=== PATIENT | female | born 1980 | race Caucasian/White ===

== ENCOUNTER 2017-01-21 09:47 | Day surgery (SDC) | payer OTHER ==
[~2017-01-21] VITALS: Ht 165.1 cm; Wt 92.2 kg
[2017-01-21] VITALS (35 sets, daily range): BP systolic 83–120; BP diastolic 40–79; PULSE 92–114; RESP 16–31; Ht 165.1 cm; Wt 92.2 kg
[~2017-01-21 09:47] MED LIST: DILANTIN PO; IBUPROFEN PO; XANAX PO
[2017-01-21] MEDS ORDERED: SOD CHLORIDE 0.9% 1,000 ML IV STA (10:30)
[2017-01-21 10:44] LABS: ADD SCAN DIFF NO
[2017-01-21 10:54] LABS: BASOPHILS % 0.5 % (0.0-2.0); EOSINOPHILS # 0.1 10^3/ul (0.0-0.5); EOSINOPHILS % 1.9 % (0.0-7.0); HEMOGLOBIN 7.9 g/dl (12.0-16.0); LYMPHOCYTES # 1.3 10^3/ul (0.8-2.9); LYMPHOCYTES % 21.2 % (15.0-51.0); MEAN CORPUSCULAR HEMOGLOBIN 25.3 pg (29.0-33.0); MEAN CORPUSCULAR HGB CONC 31.6 g/dl (32.0-37.0); MEAN CORPUSCULAR VOLUME 80.1 fl (82.0-101.0); MEAN PLATELET VOLUME 10.7 fl (7.4-10.4); MONOCYTE # 0.4 10^3/ul (0.3-0.9); MONOCYTES % 5.9 % (0.0-11.0); NEUTROPHIL # 4.1 10^3/ul (1.6-7.5); NEUTROPHILS % 69.7 % (39.0-77.0); PLATELET COUNT 235 10^3/UL (140-415); RED BLOOD COUNT 3.12 10^6/ul (4.20-5.40); RED CELL DISTRIBUTION WIDTH 15.6 % (11.5-14.5); WHITE BLOOD COUNT 5.9 10^3/ul (4.8-10.8)
[2017-01-21 10:59] LABS: ALBUMIN 3.7 g/dl (3.3-4.9)
[2017-01-21 11:00] LABS: INR 1.01; POTASSIUM 3.8 mmol/L (3.5-5.1); PROTIME 13.3 Sec (12.2-14.2)
[2017-01-21 11:01] LABS: PARTIAL THROMBOPLASTIN TIME 26.6 Sec (25.0-35.0)
[2017-01-21 11:02] LABS: ALBUMIN/GLOBULIN RATIO 1.32; CREATININE 0.73 mg/dl (0.44-1.00); TOTAL PROTEIN 6.5 g/dl (6.1-8.1)
[2017-01-21 11:03] LABS: CALCIUM 8.7 mg/dl (8.4-10.2)
--- NOTE | 2017-01-21 11:54 | RADRPT ---
PROCEDURE: US Obstetrical 1st Trimester CLINICAL INDICATION: Vaginal bleeding TECHNIQUE: Multiple real-time images were acquired of the patient's maternal abdomen utilizing a curved array transducer. Endovaginal scanning was also performed. COMPARISON: No previous comparison studies available FINDINGS: The uterus is normal in size and measures 9.4 cm in sagittal diameter and 5.1 x 4.6 cm in cross diam eter. The endometrial cavity within the fundus is poorly visualized and measures approximately 1 cm in cross diameter. There is a sac like structure within the cervix measuring 5.7 x 1.6 x 0.6 cm. No yolk sac or pole is evident. A couple tiny cysts are seen within the cervix. The right ovary measures 3.2 x 1.6 x 1.9 cm. No vascular flow is demonstrated within the right ovary on spectral Doppler. The left ovary is not identified. No adnexal mass or free fluid is identified IMPRESSION: 1. Normal sized uterus. No intrauterine gestation is evident but there is a sac like structure with in the cervix measuring 5.7 x 1.6 x 0.6 cm suspicious for an in progress. 2. The right ovary appears normal and demonstrates vascular flow. The left ovary is not identified . 3. No adnexal mass or free fluid is identified. Physician Mark Date Time Electronically viewed and signed by Physician Mark on 01/21/2017 11:53 /
[2017-01-21] MEDS ORDERED: ONDANSETRON 4 MG INJ IV STA (12:00)
[2017-01-21] MEDS ORDERED: morphine 2 MG INJ IV STA (12:00)
--- NOTE | 2017-01-21 13:01 | ERA ---
ER Documentation Chief Complaint Date/Time DATE: 01/21/17 TIME: 12:50 Chief Complaint pt bib family with c/o vag bleeding approx 10 wks preg, seen already HPI This is a 36-year-old 3 para 2 female that presents to the emergency department with vaginal bleeding. The patient indicates that her last mental cycle was November 03, 2016, roughly 10 weeks when she began experience and vaginal bleeding and for the past 2 months has been doing expectant management for a known incomplete . The patient presents to the emergency department today stating that over the past 48 hours the vaginal bleeding has significantly worsened. She is utilizing roughly 6 super absorbency pads every hour. She is scheduled on Monday for a dilation and curettage by her [employer] Dr. Han, however she became very weak and dizzy and therefore came to the emergency department to be further evaluated. She has been experiencing intermittent abdominal cramping. She has had no fevers or shaking or chills ROS All systems reviewed and are negative except as per history of present illness. Medications Home Meds Discontinued Reported Medications [Xanax] No Conflict Check, PO 07/28/15 [Ibuprofen] No Conflict Check, PO 07/28/15 [Dilantin] No Conflict Check, PO 07/28/15 Allergies Allergies: Coded Allergies: No Known Allergy (Unverified , 01/21/17) PMhx/Soc History of Surgery: Yes (ABD PLASTY) Anesthesia Reaction: No Hx Neurological Disorder: Yes (SZ. LAST SZ MAY 06 2015) Hx Respiratory Disorders: No Hx Cardiac Disorders: No Hx Psychiatric Problems: No Hx Miscellaneous Medical Probl: No Hx Alcohol Use: No Hx Substance Use: No Hx Tobacco Use: No Smoking Status: Never smoker Physical Exam Vitals Vital Signs Date Time Temp Pulse Resp B/P Pulse Ox O2 Delivery O2 Flow Rate FiO2 01/21/17 09:50 98.3 78 16 142/60 100 Physical Exam Constitutional:Well-developed. Well-nourished. HEENT:Normocephalic. Atraumatic.Pupils were equal round reactive to light. Moist mucous membranes.No tonsillar exudates. Conjunctival pallor Neck: No nuchal rigidity. No lymphadenopathy. No posterior cervical spine tenderness or step-offs. Respiratory: Not using accessory muscles of respiration.Lungs were clear to auscultation bilaterally. No rhonchi. No rales. No wheezing. Cardiovascular: Regular rate regular rhythm.No murmurs. No rubs were appreciated.S1, S2 normal. Distal pulses are palpable 2+ bilaterally. GI: Abdomen was soft. Nontender. Non Distended. No pulsatile abdominal masses or bruits. No rebound. No guarding. Bowel sounds were present and normal. : Pelvic exam was performed by myself and the patient denied a female nurse heel cover splitter to be present. There was a significant amount of gross blood present within the vaginal vault. Products of conception were also present within the cervical eyes Muscle skeletal: Full range of motion of both the upper and lower extremities bilaterally.Normal muscle tone.No assymetrical calf tenderness or swelling. Skin: Pallor with no petechia, no purpura. No lesions on the palms or the soles of the feet. No maculopapular rash. NEURO: Patient was alert, awake, orientated x3.No facial droop. Gait observed and normal with no ataxia.Speech had regular rate and rhythm. No focal neurological deficits. Result Diagram: 01/21/17 1035 01/21/17 1035 Results 24 hrs Laboratory Tests Test 01/21/17 10:35 Activated Partial Thromboplast Time 26.6Sec Alanine Aminotransferase (ALT/SGPT) 26IU/L Albumin 3.7g/dl Albumin/Globulin Ratio 1.32 Alkaline Phosphatase 53IU/L Anion Gap 15 Aspartate Amino Transf (AST/SGOT) 21IU/L Basophils # 0.010^3/ul Basophils % 0.5% Blood Urea Nitrogen 11mg/dl Calcium Level 8.7mg/dl Carbon Dioxide Level 26mmol/L Chloride Level 105mmol/L Creatinine 0.73mg/dl Direct Bilirubin 0.00mg/dl Eosinophils # 0.110^3/ul Eosinophils % 1.9% Globulin 2.80g/dl Glucose Level 101mg/dl Hematocrit 25.0% Hemoglobin 7.9g/dl INR International Normalized Ratio 1.01 Indirect Bilirubin 0.0mg/dl Lymphocytes # 1.310^3/ul Lymphocytes % 21.2% Mean Corpuscular Hemoglobin 25.3pg Mean Corpuscular Hemoglobin Concent 31.6g/dl Mean Corpuscular Volume 80.1fl Mean Platelet Volume 10.7fl Monocytes # 0.410^3/ul Monocytes % 5.9% Neutrophils # 4.110^3/ul Neutrophils % 69.7% Nucleated Red Blood Cells # 0.010^3/ul Nucleated Red Blood Cells % 0.0/100WBC Platelet Count 10028^3/UL Potassium Level 3.8mmol/L Prothrombin Time 13.3Sec Prothrombin Time Ratio 1.0 Red Blood Count 3.1210^6/ul Red Cell Distribution Width 15.6% Sodium Level 142mmol/L Total Bilirubin 0.0mg/dl Total Protein 6.5g/dl White Blood Count 5.910^3/ul Current Medications Medications (Trade) Dose Ordered Sig/Oxana Route PRN Reason Start Time Stop Time Status Last Admin Dose Admin Sodium Chloride (NS) 1,000 ml @ 1,000 mls/hr Q1H STAT IV 01/21/17 10:30 01/21/17 11:29 DC 01/21/17 10:48 Morphine Sulfate (morphine) 2 mg ONCE STAT IV 01/21/17 12:00 01/21/17 12:02 DC 01/21/17 12:31 Ondansetron HCl (Zofran Inj) 4 mg ONCE STAT IV 01/21/17 12:00 01/21/17 12:02 DC 01/21/17 12:31 Procedures/MDM This patient presented to the emergency department dizziness with pallor and anemia with hemoglobin of 7.9 with an incomplete . The patient was immediately placed in a manager cardiac cath continuous pulse oximetry and IV access was established by nursing staff. The patient was typed and crossed and given 2 units packed red blood cells in the emergency department. She was afebrile and nonseptic at this time. The [employer] on-call for Dr. Han was Dr. Clayton. Immediately came down to evaluate the patient and took her immediately to the OR to undergo a dilation and curettage. The patient will be admitted for observation under the care of Dr. Clayton in serious condition and went directly to the OR from the emergency room. Departure Diagnosis: Primary Impression: Incomplete Additional Impression: Anemia affecting in first trimester Condition: Serious NALDO MILES Jan 21, 2017 13:00
[2017-01-21 13:10] LABS: ADD UMIC YES; URINE BILIRUBIN (Dip) NEGATIVE (NEGATIVE); URINE BLOOD (Dip) 3+ (NEGATIVE); URINE COLOR LT. YELLOW (YELLOW); URINE GLUCOSE (Dip) NEGATIVE (NEGATIVE); URINE KETONES (Dip) NEGATIVE (NEGATIVE); URINE LEUKOCYTE ESTERASE (Dip) NEGATIVE (NEGATIVE); URINE NITRITE (Dip) NEGATIVE (NEGATIVE); URINE TOTAL PROTEIN (Dip) NEGATIVE (NEGATIVE); URINE UROBILINOGEN (Dip) 0.2 E.U./dL (0.1-1.0)
[2017-01-21 13:32] LABS: URINE RBCS >200 /HPF (0)
[2017-01-21] MEDS ORDERED: MIDAZOLAM 1 MG/ML 2 ML INJ ONE (14:05)
[2017-01-21] MEDS ORDERED: FENTAnyl 50 MCG/ML VIAL ONE (14:05)
[2017-01-21] MEDS ORDERED: PROPOFOL 20 ML ONE (14:05)
[2017-01-21] MEDS ORDERED: ONDANSETRON 4 MG INJ ONE (14:06)
[2017-01-21] MEDS ORDERED: DEXAMETHASONE 4 MG/ML 1 ML INJ ONE (14:06)
[2017-01-21] MEDS ORDERED: DEXTROSE 5%-LR 1,000 ML IV SCH (15:00)
[2017-01-21] MEDS ORDERED: KETOROLAC 30 MG INJ IV ONE (15:30)
[2017-01-21] MEDS ORDERED: MEPERIDINE 25 MG INJ IV PRN (15:30)
[2017-01-21] MEDS ORDERED: morphine (1 MG/ML) 10ML SYRINGE IV PRN ×3 (15:30)
[2017-01-21] MEDS ORDERED: ONDANSETRON 4 MG INJ IV PRN (15:30)
[2017-01-21] MEDS ORDERED: DIPHENHYDRAMINE 50 MG INJ IV PRN (15:30)
--- NOTE | 2017-01-21 15:57 | OPR ---
DATE OF OPERATION: 01/21/2017 PREOPERATIVE DIAGNOSES: Intrauterine about 10 weeks, incomplete . POSTOPERATIVE DIAGNOSES: Intrauterine about 10 weeks, incomplete . OPERATION PERFORMED: Dilatation and curettage and examination under anesthesia. DESCRIPTION OF PROCEDURE: Under satisfactory general anesthesia, the patient was placed in lithotom y position. Vaginal area was prepped and the patient was draped. A bimanual pelvic examination was performed and the uterus was about 7 weeks' size. Weighted speculum was placed inside the vagina a nd the cervix was picked up by a tenaculum. Uterus sounded about 8 cm, then no further dilatation w as needed. Using a number 9 and 10 mm suction cannula, the remainder of the product of conception w as removed and was sent for pathological examination. At the end of this procedure, there was basic ally no bleeding. She received 2 grams of Ancef as a prophylactic measure before the start of the p rocedure, and she was transferred to the recovery room in a stable condition. The curettings were s ent for pathological examination. Dictated By: LEON LANTIGUA/ELIUD Conf#: [id number] DID#: [id number]
[2017-01-21 17:19] LABS: HEMATOCRIT 24.6 % (37.0-47.0); HEMOGLOBIN 7.8 g/dl (12.0-16.0)
[2017-01-21 18:21] LABS: HEMATOCRIT 23.8 % (37.0-47.0); HEMOGLOBIN 7.5 g/dl (12.0-16.0)
[2017-01-21] MEDS ORDERED: KETOROLAC 30 MG INJ IV SCH (20:30)
[2017-01-21 21:20] LABS: HEMATOCRIT 26.8 % (37.0-47.0); HEMOGLOBIN 8.4 g/dl (12.0-16.0)
== END 2017-01-21 22:07 | disposition home or self-care (01) ==
LOC: E/R 09:47 → SDS 13:26
DX: O03.4 Incomplete spontaneous abortion without complication (principal)
CPT/HCPCS: 36430; 76801; 76817; 80053; 81001; 81003; 85014; 85018; 85025; 85610; 85730; 86850; 86900; 86901; 86920; 88305; 96374; 96375; J1100; J1885; J2250; J2270; J2405; J3010; J7030; P9016

== ENCOUNTER 2018-08-20 09:01 | Emergency (ER) | END 2018-08-20 12:44 | disposition home or self-care (01) ==